=== PATIENT | male | born 1975 | race Two or more races ===

== ENCOUNTER → 2016-08-14 | Outpatient (CLI) | payer OTHER ==
--- NOTE | 2016-08-14 11:56 | KCIC ---
PROCEDURE MRI right knee without contrast dated 08/14/2016. HISTORY Chronic right knee pain and instability. TECHNIQUE Routine multiplanar multisequence MR imaging performed. COMPARISON None. FINDINGS Bone marrow signal is homogeneous. No marrow edema. Mild thinning of the articular cartilage without focal cartilage defect. Small joint effusion. No loose body. No significant popliteal cyst. Anterior cruciate and posterior cruciate ligaments are intact. Medial and lateral collateral complexes are intact. Iliotibial band, popliteus tendon and pes anserine complex within normal limits. There is a multiseptated cystic focus that extends along the pes anserine measures up to 2.6 centimeters in size. Quadriceps and patellar tendon are intact. No abnormality of the medial or lateral retinaculum. Mild lateral patellar subluxation with its tibial tubercle to trochlear groove distance estimated about 10 millimeter. Both menisci are normal in morphology and signal. No articular surface tear or parameniscal cyst. IMPRESSION - No evidence of internal derangement. - Mild tricompartmental degenerative arthrosis and chondromalacia. - Small complex zone of fluid bright T2 signal along the superficial margin of the pes anserine complex may represent complex bursitis or small ganglion cyst or parameniscal cyst. - Mild lateral patellar subluxation. Electronically signed by: Bg Martin (Aug 14, 2016 11:55:28)
== END | disposition home or self-care (01) ==
LOC: KCIC MRI 11:03
PROVIDERS: ATTEND Family Medicine
DX: M23.51 Chronic instability of knee, right knee (principal); M25.561 Pain in right knee; G89.29 Other chronic pain
CPT/HCPCS: 73721